=== PATIENT | male | born 1975 | race American Indian/Alaskan Native ===

== ENCOUNTER 2023-07-26 11:23 | Emergency (ER) | payer OTHER, SELFPAY ==
--- NOTE | ~2023-07-26 | XR_ITS ---
EXAMINATION: XR CHEST CLINICAL INFORMATION: Cough, chest pain COMPARISON: None available. TECHNIQUE: 2 views of the chest were obtained. FINDINGS: Heart, mediastinum, pulmonary vessels and lung beckwith within normal limits. Mild biapical pleural thickening. Bony structures are intact. Hardware lower cervical spine identified. XR/XR chest 2V IMPRESSION: No acute cardiopulmonary disease.
[2023-07-26 11:41] VITALS: BP 134/87; BP 146/99; PULSE 99; RESP 18; TEMP 36.6; O2SAT 97; O2SAT 98; BMI 22.1
--- NOTE | 2023-07-26 12:07 | ED.URI ---
HPI - URI/Sore Throat General Chief Complaint: Upper Respiratory Symptoms Stated Complaint: COUGH Time Seen by Provider: 07/26/23 11:34 Source: patient and EMS Mode of arrival: EMS Limitations: no limitations History of Present Illness HPI Narrative: 47-year-old male with a history of polysubstance abuse currently residing at [facility] presents to the ER with 4 days of congested cough which is nonproductive. No shortness of breath, fevers or chills. No chest pain, leg swelling or leg pain. Patient reports history of tobacco smoking. Patient reports history of opiate use. Denies any history of IV drug abuse. Related Data Previous Rx's ?Medication ?Instructions ?Recorded benzonatate 200 mg capsule 200 mg PO TID PRN cough #20 caps 07/26/23 Allergies Allergy/AdvReac Type Severity Reaction Status Date / Time morphine Allergy Unresponsiv Verified 07/26/23 11:52 e Review of Systems Review of Systems: Yes all other systems are reviewed and are negative Constitutional: Constitutional: Reports no additional constitutional complaints, Denies body ache(s), Denies chills, Denies fever(s), Denies headache(s) and Denies weakness Eyes: Eyes: Reports no additional eye complaints and Denies change in vision ENT: Reports system reviewed and no additional complaints, except as documented, Denies dizziness, Denies headache(s), Denies nasal congestion, Denies nasal discharge and Denies neck pain Cardiovascular: Cardiovascular: Reports no additional cardiovascular complaints, Denies chest pain, Denies leg edema and Denies dyspnea Respiratory: Respiratory: Reports no additional respiratory complaints, Reports cough and Denies dyspnea Gastrointestinal: Gastrointestinal: Reports no additional gastrointestinal complaints, Denies abdominal pain, Denies diarrhea, Denies nausea and Denies vomiting Genitourinary: Genitourinary: Denies urinary incontinence Musculoskeletal: Musculoskeletal: Reports no additional musculoskeletal complaints, Denies back pain, Denies arthralgias, Denies joint swelling, Denies neck pain, Denies numbness and Denies tingling Integumentary/Breasts: Skin/Breast: Reports system reviewed and no additional complaints, except as docu and Denies rash Neurologic: Reports system reviewed and no additional complaints, except as documented, Denies Abnormal speech present, Denies dizziness, Denies headache(s), Denies numbness, Denies tingling and Denies weakness [facility] Past Medical History Attestation statement: The following information was validated with the patient. Source: old records reviewed and nursing notes reviewed Social History Social History Smoked in Last 30 Days: No Use of substances other than those prescribed or required for medical reasons: Yes Advance Directives: No Advance Directives Information Provided: Yes Physical Exam Vital Signs: Vital Signs: Last Vital Signs Temp 97.9 F 07/26/23 11:41 Pulse 99 07/26/23 11:41 Resp 18 07/26/23 11:41 BP 146/99 H 07/26/23 11:41 Pulse Ox 97 07/26/23 11:41 O2 Del Method Room Air 07/26/23 11:41 BMI result Body Mass Index 22.1 Const: General: cooperative, healthy appearing, comfortable and no acute distress Orientation/consciousness: patient oriented x3 Limitations: no limitations HEENT: Head: Yes normal to inspection Ears: hearing grossly normal bilaterally General nose exam: Normal external nose present Face and sinus: Yes normal facial exam Mouth: Normal oral and palatal mucosa present Throat: Yes posterior oropharynx normal Eyes: General: appearance normal, both eyes and all related structures Pupils: Equal, round and reactive pupils present Neck: Neck: Yes normal visual inspection Chest: Chest palpation & inspection: normal inspection of the chest Resp: Effort & Inspection: normal respiratory effort Auscultation: rhonchi Cardio: Rate: regular rate Rhythm: regular rhythm Peripheral pulses: Peripheral pulses 2+ throughout GI: Inspection: Yes normal to inspection Palpation (GI): Soft to palpation and nontender Auscultation: normal bowel sounds Back/Spine/Pelvis: Thoracic/Lumbar Spine: thoracic and lumbar spine normal to inspection Skin: General skin exam: no rashes or lesions noted Neuro: General: patient oriented x3, no focal motor deficits and normal sensation to monofilament Cranial nerves: Yes Equal, round and reactive pupils present Cognition (Neuro): normal cognition Speech: No Abnormal speech present Gait exam (Neuro): Normal gait present Motor exam (neuro): 5/5 motor strength present throughout Extrem: General: Yes normal to inspection, Yes no pedal edema and Yes no calf tenderness Course Course Course Narrative: X-ray shows no acute finding. Viral testing is negative. Patient has stable vital signs. Well-appearing. Will discharge back to [facility] for further care. Likely viral URI Medical Decision Making Medical Decision Making [facility] Narrative: 47-year-old male with a history of polysubstance abuse currently residing at [facility] on a section presents to the ER with 4 days of congested cough which is nonproductive. No shortness of breath, fevers or chills. No chest pain, leg swelling or leg pain. Patient reports history of tobacco smoking. Patient reports history of opiate use. Denies any history of IV drug abuse. LS with rhonchi VSS Will obtain viral testing, CXR Differential Diagnosis Differential Diagnoses: The differential diagnosis associated with the presentation includes Viral syndrome, pneumonia Low suspicion for PE, pneumothorax Admission/Observation Consideration of admission/observation: Escalation of care including admission/observation considered Likely viral URI with stable vital signs not requiring oxygen so supplementation and admission Lab Data [facility] Lab Attestation statement: I reviewed the patient's lab results. Labs: Lab Results 07/26/23 Range/Units 12:05 Influenza Type A (PCR) NEGATIVE (Negative) Influenza Type B (PCR) NEGATIVE (Negative) RSV RNA Qual (PCR) NEGATIVE (Negative) SARS-CoV-2 RNA (RT-PCR) NEGATIVE (Negative) Independent Interpretation I performed an independent interpretation of an: Plain X-Ray Interpretation: I independently reviewed the x-ray and agree with the radiology report Radiology Impression Discussion of test interpretation with radiology: I have reviewed the radiologist's reading. Radiologist Impression: [place] [id number] XRay Report Signed Patient: Byron Santos MR#: [id number] : 1975 Acct:[id number] Age/Sex: 47 / M ADM Date: 07/26/23 Loc: .ED Attending Dr: Ordering Physician: Alejandra Beach NP Date of Service: 07/26/23 Procedure(s): XR chest 2V Accession Number(s): [id number] cc: Physician,None ; Alejandra Becah NP~ EXAMINATION: XR CHEST CLINICAL INFORMATION: Cough, chest pain COMPARISON: None available. TECHNIQUE: 2 views of the chest were obtained. FINDINGS: Heart, mediastinum, pulmonary vessels and lung beckwith within normal limits. Mild biapical pleural thickening. Bony structures are intact. Hardware lower cervical spine identified. XR/XR chest 2V IMPRESSION: No acute cardiopulmonary disease. Independent Historian Clinical information obtained from an independent historian. History obtained from or confirmed by: EMS Discharge Plan Discharge Clinical Impression: Upper respiratory infection Patient Disposition: [facility]fer [facility] Transfer Details: [facility] Instructions: Upper Respiratory Infection (ED) Additional Instructions: Testing for flu, covid and RSV are negative Chest x-ray shows no acute finding Motrin or tylenol for pain as needed Return for worsening symptoms Prescriptions: New benzonatate 200 mg capsule 200 mg PO TID PRN (Reason: cough) Qty: 20 0RF Referrals: Physician,None [Primary Care Provider] - 5 days Print Language: Setswana
[2023-07-26 12:51] LABS: Influenza A PCR NEGATIVE (Negative); Influenza B PCR NEGATIVE (Negative); Resp Syncy Virus RNA Qual PCR NEGATIVE (Negative); SARS COV2 PCR INHOUSE NEGATIVE (Negative)
[2023-07-26 15:44] VITALS: BP 159/96; PULSE 80; RESP 18; TEMP 36.8
== END 2023-07-26 15:44 ==
PROVIDERS: Nurse Practitioner Family; Emergency Provider Emergency Medicine
DX: J06.9 Acute upper respiratory infection, unspecified (principal)
CPT/HCPCS: 0241U; 71046; 99283; 99284